=== PATIENT | female | born 1985 | race Caucasian/White ===

== ENCOUNTER 2017-12-16 08:51 | Outpatient (CLI) | payer OTHER ==
[~2017-12-16] VITALS: Ht 160 cm; Wt 66.7 kg
[~2017-12-16 08:51] MED LIST: MOTRIN800 MG PO; PRENATAL TABLE1 EACH PO
[2017-12-16 09:08] VITALS: BP 144/94
[2017-12-16 10:17] VITALS: BP 114/81
== END 2017-12-16 11:55 | disposition home or self-care (01) ==
LOC: LDRP-OP 08:51 → 2WEST 08:52 → LDRP-OP 19:09
PROC: 10S0XZZ Reposition Products of Conception, External Approach (ICD-10-PCS; principal; 2017-12-16)
DX: O32.1XX0 Maternal care for breech presentation, not applicable or unspecified (principal)
CPT/HCPCS: 59025; G0378

== ENCOUNTER 2018-01-06 06:49 | Inpatient (IN) | payer OTHER ==
[~2018-01-06] VITALS: Ht 160 cm; Wt 67.3 kg
[2018-01-06] VITALS (13 sets, daily range): BP systolic 119–143; BP diastolic 70–94
[2018-01-06 07:47] LABS: BASOPHIL (%) 0.3 % (0-1); EOSINOPHIL (%) 0.6 % (0-5); HEMOGLOBIN 12.7 G/DL (11.9-15.5); IMMATURE GRANULOCYTE (%) 0.6 % (0.0-0.7); LYMPHOCYTE (%) 30.6 % (15-42); LYMPHOCYTE COUNT 2.1 K/uL (1.0-2.8); MCH 31.7 PG (29.0-34.0); MCHC 34.3 G/DL (30.0-36.0); MCV 92.3 FL (83-99); MONOCYTE (%) 7.5 % (3-12); MONOCYTE COUNT 0.5 K/uL (0-0.8); NEUTROPHIL (%) 60.4 % (45-76); NEUTROPHIL COUNT 4.1 K/uL (1.8-6.4); PLATELET COUNT 278 K/uL (156-360); RBC DIS.WIDTH-CV 12.3 % (11.8-14.6); RBC DIS.WIDTH-SD 41.6 % (39-53); RED BLOOD COUNT 4.01 M/uL (3.80-5.20); WHITE BLOOD COUNT 6.8 K/uL (4.1-10.2)
[2018-01-06 08:13] LABS: ALBUMIN 3.2 G/DL (3.2-4.8); ALKALINE PHOSPHATASE 153 IU/L (3-129); ALT (GPT) 11 IU/L (3-49); AST (GOT) 18 IU/L (2-34); CHLORIDE 104 MEQ/L (99-109); CREATININE 0.6 MG/DL (0.6-1.3); GFR ESTIMATE (CALCULATED) > 59 mL/min/; GLUCOSE 76 mg/dL (70-99); POTASSIUM 4.2 MEQ/L (3.7-5.4); SODIUM 135 MEQ/L (136-147); TOTAL BILIRUBIN 0.3 MG/DL (0.0-1.0); TOTAL PROTEIN 5.4 G/DL (6.4-8.3); UREA NITROGEN (BUN) 9 mg/dL (9-23)
[2018-01-06 09:54] LABS: AMPHETAMINE NEGATIVE (500 ng/mL); BARBITURATES NEGATIVE (200 ng/mL); BENZODIAZEPINES NEGATIVE (150 ng/mL); BUPRENORPHINE NEGATIVE (10 ng/mL); COCAINE NEGATIVE (150 ng/mL); METHADONE NEGATIVE (200 ng/mL); METHAMPHETAMINE NEGATIVE (500 ng/mL); OPIATES (MORPHINE) NEGATIVE (100 ng/mL); OXYCODONE NEGATIVE (100 ng/mL); PHENCYCLIDINE NEGATIVE (25 ng/mL); PROPOXYPHENE NEGATIVE (300 ng/mL); THC CANNABINOIDS NEGATIVE (50 ng/mL); TRICYCLIC ANTIDEPRESSANTS NEGATIVE (300 ng/mL)
[2018-01-07 07:22] VITALS: BP 123/80
[2018-01-07] MEDS ORDERED: IBUPROFEN800 MG PO (08:51)
[2018-01-07 15:16] VITALS: BP 137/90
[2018-01-07 15:57] VITALS: BP 127/96
[2018-01-07 17:19] VITALS: BP 134/82
== END 2018-01-07 18:29 | disposition home or self-care (01) | DRG 775 ==
LOC: LDRP-OP 06:49 → 2WEST 06:50 → LDRP-OP 11:56 → 2WEST 13:41 → LDRP-OP 01-30 14:03
PROVIDERS: Advanced Practice Midwife; Obstetrics & Gynecology
PROC: 10E0XZZ Delivery of Products of Conception, External Approach (ICD-10-PCS; principal; 2018-01-06)
PROC: 3E033VJ Introduction of Other Hormone into Peripheral Vein, Percutaneous Approach (ICD-10-PCS; 2018-01-06)
DX: O48.0 Post-term pregnancy (principal); Z37.0 Single live birth; Z3A.41 41 weeks gestation of pregnancy; O69.81X1 Labor and delivery complicated by cord around neck, without compression, fetus 1
CPT/HCPCS: 80053; 85025; J7120